=== PATIENT | male | born 1985 | race Caucasian/White ===

== ENCOUNTER 2017-01-06 14:52 | Emergency (ER) | payer SELFPAY | END 2017-01-06 15:00 | disposition home or self-care (01) | LOC: ER 14:52 | DX: S50.01XA Contusion of right elbow, initial encounter (principal); S50.11XA Contusion of right forearm, initial encounter; S60.221A Contusion of right hand, initial encounter; Z90.89 Acquired absence of other organs; W18.30XA Fall on same level, unspecified, initial encounter; Y92.002 Bathroom of unspecified non-institutional (private) residence as the place of occurrence of the external cause | CPT/HCPCS: 73060-RT; 73080-RT; 73090-RT; 73110-RT; 99283 ==